=== PATIENT | female | born 1990 | race Two or more races ===

== ENCOUNTER 2017-10-28 11:07 | Emergency (ER) | payer SELFPAY ==
[~2017-10-28] VITALS: Ht 152.4 cm; Wt 41.0 kg
[2017-10-28] MEDS ORDERED: ONDANSETRON HCL 4MG/2ML VIAL IV ONE (14:30)
[2017-10-28] MEDS ORDERED: FAMOTIDINE 20MG/2ML VIAL IV ONE (14:30)
[2017-10-28] MEDS ORDERED: SODIUM CHLORIDE 0.9% 1,000 ML IV ONE (14:30)
[2017-10-28 15:03] LABS: CHLORIDE 105 mEq/L (98-107)
[2017-10-28 15:04] LABS: INR 1.1; PROTHROMBIN TIME 11.7 sec (9.4-11.6)
[2017-10-28 15:06] LABS: HEMATOCRIT. 39.2 % (36.0-48.0); HEMOGLOBIN. 13.6 g/dL (12.0-16.0); MEAN CORPUSCULAR HEMOGLOBIN 30.7 pg (28.0-32.0); MEAN CORPUSCULAR VOLUME 88.8 fL (81.0-99.0); MEAN PLATELET VOLUME 11.4 fl (7.4-10.4); PLATELET 214 x1000/uL (130-400); RED BLOOD CELL COUNT 4.41 mill/uL (4.2-5.4); RED CELL DISTRIBUTION WIDTH 15.2 % (11.6-14.6)
[2017-10-28 15:12] LABS: CARBON DIOXIDE 22 mEq/L (21-32)
[2017-10-28 15:32] LABS: CLARITY URINE CLOUDY (CLEAR); COLOR URINE YELLOW (YELLOW); KETONES URINE 3+ (NEGATIVE); LEUKOCYTE ESTERASE URINE TRACE (NEGATIVE); NITRITE URINE NEGATIVE (NEGATIVE); OCCULT BLOOD URINE 2+ (NEGATIVE); PROTEIN URINE TRACE (NEGATIVE); SPECIFIC GRAVITY URINE 1.027 (1.005-1.030)
[2017-10-28] MEDS ORDERED: IBUPROFEN 400MG TABLET PO ONE (16:15)
[2017-10-28 16:29] LABS: PLATELET ESTIMATE NORMAL
[2017-10-28 18:02] VITALS: BP 104/58
== END 2017-10-28 19:17 | disposition home or self-care (01) ==
LOC: ER 12:22
DX: N39.0 Urinary tract infection, site not specified (principal); F79 Unspecified intellectual disabilities
CPT/HCPCS: 36415; 80053; 81001; 81025; 83690; 85025; 85610; 96374; 96375; 99284; J2405; J3490; J7030

== ENCOUNTER 2017-10-31 08:35 | Emergency (ER) | payer MEDICAID ==
[~2017-10-31] VITALS: Ht 152.4 cm; Wt 43.0 kg
[2017-10-31] MEDS ORDERED: SODIUM CHLORIDE 0.9% 1,000 ML IV ONE (09:46)
[2017-10-31] MEDS ORDERED: ONDANSETRON HCL 4MG/2ML VIAL IV STA (09:46)
[2017-10-31 10:21] LABS: BASOPHILS % 0.9 % (0.0-2.0); HEMATOCRIT. 43.4 % (36.0-48.0); HEMOGLOBIN. 14.7 g/dL (12.0-16.0); LYMPHOCYTES % 21.9 % (20.0-50.0); MEAN CORPUSCULAR HEMOGLOBIN 30.1 pg (28.0-32.0); MEAN CORPUSCULAR VOLUME 88.6 fL (81.0-99.0); MEAN PLATELET VOLUME 11.3 fl (7.4-10.4); NEUTROPHILS % 69.2 % (40.0-76.0); PLATELET 230 x1000/uL (130-400); RED CELL DISTRIBUTION WIDTH 14.6 % (11.6-14.6)
[2017-10-31 10:26] LABS: CHLORIDE 102 mEq/L (98-107)
[2017-10-31 10:29] LABS: INR 1.1; PROTHROMBIN TIME 11.9 sec (9.4-11.6)
[2017-10-31 10:34] LABS: CARBON DIOXIDE 17 mEq/L (21-32)
[2017-10-31 11:13] LABS: CLARITY URINE CLEAR (CLEAR); COLOR URINE YELLOW (YELLOW); KETONES URINE 4+ (NEGATIVE); LEUKOCYTE ESTERASE URINE NEGATIVE (NEGATIVE); NITRITE URINE NEGATIVE (NEGATIVE); OCCULT BLOOD URINE NEGATIVE (NEGATIVE); PROTEIN URINE TRACE (NEGATIVE); SPECIFIC GRAVITY URINE 1.027 (1.005-1.030); UROBILINOGEN URINE 0.2 E.U./dL (0.2-1.0)
[2017-10-31] MEDS ORDERED: MAGNESIUM/ALUMINUM HYDROXIDE/SIMETHICONE 30ML UDC PO NR (11:15)
[2017-10-31] MEDS ORDERED: ACETAMINOPHEN 500MG TABLET PO NR (11:15)
[2017-10-31] MEDS ORDERED: FAMOTIDINE 20MG/2ML VIAL IV NR (11:15)
[2017-10-31 11:51] VITALS: BP 139/90
== END 2017-10-31 12:32 | disposition home or self-care (01) ==
LOC: ER 08:56
DX: R10.84 Generalized abdominal pain (principal); F79 Unspecified intellectual disabilities
CPT/HCPCS: 36415; 74176; 76856; 80053; 81001; 81025; 83690; 85025; 85610; 87210; 96361; 96374; 96375; 99285; J2405; J3490; J7030

== ENCOUNTER 2020-01-07 16:49 | Emergency (ER) | payer MEDICAID ==
[~2020-01-07] VITALS: Ht 160 cm; Wt 45.0 kg
[2020-01-07] MEDS ORDERED: ACETAMINOPHEN 325MG TABLET PO STA (18:50)
[2020-01-07] MEDS ORDERED: KETOROLAC 30MG/ML VIAL IV STA (18:50)
[2020-01-07] MEDS ORDERED: ONDANSETRON HCL 4MG/2ML INJ IV ONE (19:00)
[2020-01-07] MEDS ORDERED: SODIUM CHLORIDE 0.9% 1,000 ML IV ONE (19:00)
[2020-01-07 19:20] LABS: CLARITY URINE CLOUDY (CLEAR); COLOR URINE YELLOW (YELLOW); KETONES URINE 3+ (NEGATIVE); LEUKOCYTE ESTERASE URINE NEGATIVE (NEGATIVE); NITRITE URINE NEGATIVE (NEGATIVE); OCCULT BLOOD URINE TRACE (NEGATIVE); PH URINE 5.5 (4.5-8.0); PROTEIN URINE 1+ (NEGATIVE); SPECIFIC GRAVITY URINE 1.038 (1.005-1.030)
[2020-01-07 19:22] LABS: CHLORIDE 104 mEq/L (98-107)
[2020-01-07 19:26] LABS: BASOPHILS % 0.3 % (0.0-2.0); HEMATOCRIT. 40.3 % (36.0-48.0); HEMOGLOBIN. 13.9 g/dL (12.0-16.0); LYMPHOCYTES % 7.5 % (20.0-50.0); MEAN CORPUSCULAR HEMOGLOBIN 30.6 pg (28.0-32.0); MEAN CORPUSCULAR VOLUME 88.6 fL (81.0-99.0); MONOCYTES % 3.5 % (2.0-8.0); NEUTROPHILS % 88.7 % (40.0-76.0); PLATELET 149 x1000/uL (130-400); RED BLOOD CELL COUNT 4.55 mill/uL (4.2-5.4); RED CELL DISTRIBUTION WIDTH 13.7 % (11.6-14.6)
[2020-01-07 19:38] LABS: HCG SCREEN NEGATIVE
[2020-01-07] MEDS ORDERED: IOHEXOL-300 100 ML BOTTLE ONE (20:33)
[2020-01-07] MEDS ORDERED: POTASSIUM CHLORIDE 20MEQ/PACKET PO ONE (20:45)
[2020-01-07] MEDS ORDERED: METRONIDAZOLE 500MG TABLET PO ONE (22:00)
[2020-01-07] MEDS ORDERED: CEFTRIAXONE SODIUM 250 MG/VIAL IM ONE (22:00)
[2020-01-07] MEDS ORDERED: DOXYCYCLINE HYCLATE 100MG CAPSULE PO ONE (22:00)
[2020-01-07] MEDS ORDERED: LIDOCAINE HCL 1% 20ML VIAL (Pyxis) INJ INFIL ONE (23:45)
[2020-01-08 00:05] VITALS: BP 134/78
[2020-01-10 04:10] LABS: NEISSERIA GONORRHOEAE NAA Negative (Negative)
== END 2020-01-08 00:08 | disposition home or self-care (01) ==
LOC: ER 16:49
DX: N73.9 Female pelvic inflammatory disease, unspecified (principal); R11.2 Nausea with vomiting, unspecified; N89.8 Other specified noninflammatory disorders of vagina; L53.9 Erythematous condition, unspecified
CPT/HCPCS: 36415; 74177; 80053; 81003; 81025; 83690; 84703; 85025; 87491; 87591; 96361; 96372; 96374; 96375; 99285; J0696; J1885; J2405; J3490; J7030; Q9967